=== PATIENT | female | born 1970 | race Caucasian/White ===

== ENCOUNTER 2023-01-12 08:02 | Outpatient (CLI) | payer OTHER, SELFPAY ==
--- NOTE | 2023-01-12 07:59 | W.ANESCHARGE ---
Anesthesia Charges Start Date/Time Anesthesia Start Date: 01/12/23 Anesthesia Start Time: 09:00 Stop Date/Time Anesthesia Stop Date: 01/12/23 Anesthesia Stop Time: 10:05
--- NOTE | 2023-01-12 10:07 | W.ANESCHARGE ---
Anesthesia Charges Start Date/Time Anesthesia Start Date: 01/12/23 Anesthesia Start Time: 09:00 Stop Date/Time Anesthesia Stop Date: 01/12/23 Anesthesia Stop Time: 10:05
== END 2023-01-12 08:03 | disposition home or self-care (01) ==
LOC: OP CLINIC 08:03
PROVIDERS: PCP Internal Medicine; Visit Provider Surgery
DX: Z12.11 Encounter for screening for malignant neoplasm of colon (principal); K62.1 Rectal polyp; Z83.71 Family history of colonic polyps
CPT/HCPCS: 00811; 45385; 88305; J2405; J2704

== ENCOUNTER 2023-02-12 16:09 | Outpatient (CLI) | payer OTHER, SELFPAY | END 2023-02-12 16:10 | disposition home or self-care (01) | PROVIDERS: PCP Internal Medicine; Visit Provider Registered Nurse | DX: Z01.419 Encounter for gynecological examination (general) (routine) without abnormal findings (principal) | CPT/HCPCS: 80061; 82947 ==

== ENCOUNTER 2023-05-25 14:54 | Outpatient (CLI) | payer OTHER, SELFPAY | END 2023-05-25 14:55 | disposition home or self-care (01) | PROVIDERS: PCP Internal Medicine; Visit Provider Family Medicine | DX: Z00.00 Encounter for general adult medical examination without abnormal findings (principal); R53.83 Other fatigue; F32.A Depression, unspecified; F41.9 Anxiety disorder, unspecified | CPT/HCPCS: 80053; 84443 ==

== ENCOUNTER 2023-10-19 14:36 | Outpatient (CLI) | payer OTHER, SELFPAY ==
--- NOTE | 2023-10-19 14:40 | CRLHL7_ITS ---
For Patients: As a result of the Century Cures Act, medical imaging exams and procedure reports are released immediately into your electronic medical record. You may view this report before your referring provider. If you have questions, please contact your health care provider. BILATERAL SCREENING MAMMOGRAM WITH COMPUTER-AIDED DETECTION AND TOMOSYNTHESIS TECHNIQUE: CC and MLO views were obtained. These mammographic images have been obtained using full-field digital technique. These mammographic images were interpreted with the benefit of computer-aided detection. Breast Tomosynthesis was used in this interpretation. COMPARISON FILM: 10/14/22, 10/13/21, 05/05/18. FINDINGS: The breasts are heterogeneously dense, which may obscure small masses IMPRESSION: There is no radiographic evidence for malignancy. ASSESSMENT: BI-RADS Category 1: Negative RECOMMENDATION: Routine screening mammogram in 1 year. A lay language report of this examination will be provided to the patient. Ed Rajan M.D. Diagnostic Radiologist [email or web address] LANNY/Dictated by: Ed Rajan MD @ 10/20/2023 8:46:00 AM (Electronically Signed)
== END 2023-10-19 14:37 | disposition home or self-care (01) ==
LOC: MAMMO 14:37
PROVIDERS: PCP Internal Medicine; Visit Provider Obstetrics & Gynecology
DX: Z12.31 Encounter for screening mammogram for malignant neoplasm of breast (principal); R92.2 Inconclusive mammogram
CPT/HCPCS: 77063; 77067

== ENCOUNTER 2024-03-19 09:55 | Outpatient (CLI) | payer OTHER, SELFPAY | END 2024-03-19 09:56 | disposition home or self-care (01) | LOC: NFLDREF 03-20 14:37 | PROVIDERS: PCP Family Medicine; Referring Provider Family Medicine; Visit Provider Nurse Practitioner Family | DX: N30.00 Acute cystitis without hematuria (principal); N39.0 Urinary tract infection, site not specified | CPT/HCPCS: 87086; 87186 ==

== ENCOUNTER 2024-11-14 11:23 | Outpatient (CLI) | payer OTHER, SELFPAY ==
--- NOTE | 2024-11-14 11:30 | CRLHL7_ITS ---
For Patients: As a result of the Century Cures Act, medical imaging exams and procedure reports are released immediately into your electronic medical record. You may view this report before your referring provider. If you have questions, please contact your health care provider. INDICATION: BILATERAL SCREENING MAMMOGRAM, ASYMPTOMATIC 54 Y/O FEMALE COMPARISON: 10/19/2023, 10/14/2022, 10/13/2021 TECHNIQUE: Digital mammogram in CC and MLO projections including computer-aided detection (CAD) and tomosynthesis. BREAST COMPOSITION: The breasts are heterogeneously dense, which may obscure small masses. FINDINGS: No suspicious findings. ASSESSMENT: BI-RADS 1 Negative RECOMMENDATION: Annual screening mammogram. A lay language report of this examination will be provided to the patient. Dictated by: Ed Rajan MD @ 11/14/2024 12:09:00 (Electronically Signed)
--- OUTSIDE RECORDS SUMMARY | 2024-11-15 00:50 | XMS_ITS | Encounter Summary ---
Author Organization [place] Address Formerly [facility], [facility] [place] [address] Care Team Providers Care Principal Clerk Name Role Phone [facility], [facility] Primary Care Provider Encounter Details Date Type Department Care Team (Late st Contact Info) Description 01/28/2022 Orders Only [facility] [address] [place] [address] Nicole Dickerson MD [facility] [address] [facility] [address] [place] [address] Pre-operative laboratory examination (Primary Dx) Social History Tobacco Use Types Packs/Day Years Used Date Smoking Tobacco: Never Alcohol Use Standard Drinks/Week Comments Yes 0 (1 standard drink = 0.6 oz pur e alcohol) occasionally Comments No Sex and Gender Information Value Date Recorded Sex Assigned at Not on file Legal Sex Female 3:34 PM CDT Gender Identity Not on file Sexual Orientation Not on file documented as of this encounter Plan of Treatment Not on file documented as of this encounter Results * Asymptomatic COVID-19 Virus (Coronavirus) by PCR Nose (02/05/2022 3:09 PM CDT) SARS CoV2 PCR Negative Negative 02/06/2022 10:21 AM CDT [facility] Comment:NEGATIVE: SARS-CoV-2 (COVID-19) RNA not detected, presumed negative. Swab NASAL STRUCTURE / Unknown Non-blood Collection / Unknown 02/05/2022 3:09 PM CDT 02/05/2022 3:09 PM CDT Narrative [facility] - 02/06/2022 10:21 AM CDT Testing was performed using the christopher SARS-CoV-2 assay on the christopher [employer] System. This test should be ordered for the detection of SARS-CoV-2 in individuals who meet SARS-CoV-2 clinical and/or epidemiological criteria. Test performance is unknown in asymptomatic patients. This test is for in vitro diagnostic use under the FDA EUA for laboratories certified under CLIA to perform high and/or moderate complexity testing. This test has not been FDA cleared or approved. A negative result does not rule out the presence of PCR inhibitors in the specimen or target RNA in concentration below the limit of detection for the assay. The possibility of a false negative should be considered if the patient's recent exposure or clinical presentation suggests COVID-19. This test was validated by the [facility] Infectious Diseases Diagnostic Laboratory. This laboratory is certified under the Clinical Laboratory Improvement Amendments of 1988 (CLIA-88) as qualified to perform high and/or moderate complexity laboratory testing. Nicole Dickerson MD LAB - MICRO GENERAL ORDGhazal WEINBERG Final Result [facility] Lab [address] [facility] [place] [address], [facility] [phone] documented in this encounter Visit Diagnoses Diagnosis Pre-operative laboratory examination- Primary Pre-procedural laboratory examination documented in this encounter Care Teams Principal Clerk Relationship Specialty Start Date End Date [facility], [facility] [address] [place] [address] PCP - General 03/21/14 documented as of this encounter
--- OUTSIDE RECORDS SUMMARY | 2024-11-15 00:50 | XMS_ITS | Clinical Summary ---
Author Organization [facility] Address [address] [place] [address]. [place] [address] Care Team Providers Care Hobbing Machine Operator Name Role Phone [facility], [facility] Primary Care Provider Allergies Active Allergy Reactions Criticality Noted Date Comments Amoxicillin Rash Low 03/21/2014 Amoxicillin-Pot Clavulanate Rash 07/24/19 09 Penicillin V Rash High 06/16/2021 Medications estradiol (ESTRACE) 0.1 MG/GM vaginal cream Twice Weekly 06/16/2021 Active ibuprofen (ADVIL/MOTRIN) 600 MG tabletIndicatio ns:Post-operati ve state Take 1 tablet (600 mg) by mouth every 6 hours as needed for moderate pain 30 tablet 02/10/2022 Active polyethylene glycol (MIRALAX) 17 GM/Dose powderIndicatio ns:Post-operati ve state Take 17 g by mouth daily 510 g 02/10/2022 Active Active Problems Problem Noted Date Diagnosed Date Post-operative state 02/09/2022 CARDIOVASCULAR SCREENING; LDL GOAL LESS THAN 160 03/23/2010 Immunizations Immunization Administration Dates Next Due DT (PEDS <7y) 04/28/2005,05/24/1995 Td,adult,historic,unspecified 04/28/2005 Social History Tobacco Use Types Packs/Day Years Used Date Smoking Tobacco: Never Smokeless Tobacco: Never Alcohol Use Standard Drinks/Week Comments Yes 0 (1 standard drink = 0.6 oz pur e alcohol) occasionally Adolescent Education Answer Date Record ed Getting School Help Needed Not on file 02/13 Comments No Sex and Gender Information Value Date Recorded Sex Assigned at Not on file Legal Sex Female 3:34 PM CDT Gender Identity Not on file Sexual Orientation Not on file Last Filed Vital Signs Vital Sign Reading Time Taken Comments Blood Pressure 97/61 02/10/2022 1:53 PM CDT Pulse 69 02/10/2022 1:53 PM CDT Temperature 37.5 C (99.5 F) 02/10/2022 1:53 PM CDT Respiratory Rate 16 02/10/2022 1:53 PM CDT Oxygen Saturation 94% 02/10/2022 1:53 PM CDT Inhaled Oxygen Concentration - - Weight 58.5 kg (128 lb 14.4 oz) 02/09/2022 6:22 AM CDT Height 170.2 cm (5' 7) 02/09/2022 6:22 AM CDT Body Mass Index 20.19 02/09/2022 6:22 AM CDT Plan of Treatment Health Maintenance Due Date Last Done Comments ADVANCE CARE PLANNING 1969 ANNUAL REVIEW OF HM ORDERS 1969 CT COLONOGRAPHY 1969 FIT 1969 FLEX SIG 1969 MAMMO SCREENING 1969 sDNA (Cologuard) 1969 YEARLY PREVENTIVE VISIT 1972 COLONOSCOPY 1979 COLORECTAL CANCER SCREENING 1979 HIV SCREENING 1984 HEPATITIS C SCREENING 1987 HEPATITIS B VACCINE (1 of 3 - 19+ 3-dose series) 1988 LIPID 2009 DTAP/TDAP/TD VACCINE (1 - Tdap) 12/02/2016 12/01/2016, 12/01/2016, 04/28/2005, Additional history exists DIABETES SCREENING 03/21/2017 03/21/2014 PNEUMOCOCCAL VACCINE 50+ YEARS (1 of 1 - PCV) 2019 PAP 10/05/2023 10/04/2020, 10/04/2020 COVID-19 VACCINE (3 - 2023- season) 2024 08/08/2020, 07/10/2020 PHQ-2 (once per calendar year) 2024 INFLUENZA VACCINE (Season Ended) 2025 03/15/2021, 03/16/2019, 03/12/2017, Additional history exists ZOSTER VACCINE Completed 12/01/2021, 03/28/2021 HPV VACCINE Aged Out No longer eligi ble based on patient's age to complete this topic MENINGITIS VACCINE Aged Out No longer eligible based on patient's age to complete this topic Medical Devices Implanted Type Area Inside Outside Sales Representative Device Identifier Shelf Expiration Date Model / Serial / Lot Mesh Sling Prolapse Polyform Synth [id number] - [id number] Implanted:Qty: 1 on 02/09/2022 by Nicole Dickerson MD at [facility] Mesh N/A: Pelvis [employer] 08/21/2024 [id number] / / [id number] Mesh Sling Advantage Mid Uretheral Blue [id number] - [id number] Implanted:Qty: 1 on 02/09/2022 by Nicole Dickerson MD at [facility] Mesh N/A: Pelvis [employer] 12/14/2024 [id number] / / [id number] Procedures Procedure Name Priority Date/Time Associated Diagnosis Comments COMPREHENSIVE METABOLIC PANEL STAT 03/21/2014 2:53 PM CDT from Last 3 Months or Most Recently Relevant to Health Maintenance Results * (ABNORMAL) Comprehensive metabolic panel (03/21/2014 2:53 PM CDT) Sodium 138 133 - 144 mmol/L [facility] Potassium 3.5 3.4 - 5.3 mmol/L [facility] Chloride 107 94 - 109 mmol/L [facility] Carbon Dioxide 25 20 - 32 mmol/L [facility] Anion Gap 6 3 - 14 mmol/L [facility] Glucose 113(H) 70 - 99 mg/dL [facility] Comment: Effective 12/20/2013, the reference range for this assay has changed to reflect new instrumentation/methodology. Urea Nitrogen 13 7 - 30 mg/dL [facility] Comment: Effective 12/20/2013, the reference range for this assay has changed to reflect new instrumentation/methodology. Creatinine 0.71 0.52 - 1.04 mg/dL [facility] GFR Estimate 88 >60 mL/min/1. 7m2 [facility] Comment:Non GFR Calc GFR Estimate If Black >90 GFR Calc >60 mL/min/1. 7m2 [facility] Calcium 8.6 8.5 - 10.1 mg/dL [facility] Comment: Effective 12/20/2013, the reference range for this assay has changed to reflect new instrumentation/methodology. Bilirubin Total 0.3 0.2 - 1.3 mg/dL [facility] Albumin 3.8 3.4 - 5.0 g/dL [facility] Protein Total 6.7(L) 6.8 - 8.8 g/dL [facility] Alkaline Phosphatase 57 40 - 150 U/L [facility] ALT 19 0 - 50 U/L [facility] AST 13 0 - 45 U/L [facility] Blood specimen (specimen) 03/21/2014 2:53 PM CDT 03/21/2014 3:00 PM CDT us Adin Mcdermott MD LAB - BLOOD ORDERABLES Final Res ult [facility] [address] [place] [address], [facility] [phone] from Last 3 Months or Most Recently Relevant to Health Maintenance Advance Directives For more information, please contact: [phone] * Full Code (Latest Code Status on File) Date Activated Date Inactivated Comments 02/09/2022 2:05 PM 02/10/2022 5:36 PM All basic an d advanced life-sustaining interventions are performed as appropriate Question Answer Comments Code status determined by: Discussion with erika nt/ legal decision maker Care Teams Hobbing Machine Operator Relationship Specialty Start Date End Date Clinic, [facility] [address] [place] [address] PCP - General 03/21/14
--- OUTSIDE RECORDS SUMMARY | 2024-11-15 00:50 | XMS_ITS | Clinical Summary ---
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 Gender Identity Not on file Sexual Orientation Not on file Plan of Treatment Health Maintenance Due Date Last Done Comments Tdap 1980 Depression screening for age 12+ 1981 HIV for age 15-65 1984 BMI (ht and wt on same day) for age 18+ 1987 Hepatitis C screening for ag e 18-79 1987 Hepatitis B series for 19+ ( 1 of 3 - 19+ 3-dose series) 1988 Tetanus booster 1989 Colonoscopy through age 75 2014 Lipids for age 45-75 2014 Mammogram for age 45-75 2014 Pneumococcal series for age 50+ (1 of 1 - PCV) 2019 Zoster (shingles) series for age 50+ (1 of 2) 2019 Pap test for age 21-65 10/05/2023 , 10/04/2020, 06/07/2014, Additional history exists COVID-19 vaccine series (2023- season) 2024 Influenza Vaccine (Season Ended) 2025 Procedures Procedure Name Priority Date/Time Associated Diagnosis Comments PATROL MAN THIN PREP PAP SCREEN IMAGED Routine 10/04/2020 1:45 PM CDT from Last 3 Months or Most Recently Relevant to Health Maintenance Results * PATROL MAN THIN PREP PAP SCREEN IMAGED (10/04/2020 1:45 PM CDT) Case Report Gynecologic Cytology Report Case: [id number] Authorizing Provider: Chantal Goldman PA-C Collected: 10/04/2020 1345 Ordering Location: [facility] Received: 10/07/2020 0907 First Screen: Binu Guerin Specimen: PATROL MAN ThinPrep Vial Screening, Cervical/Vaginal 10/15/2020 8:16 AM CDT [facility] INTERPRETATION/ RESULT NEGATIVE FOR INTRAEPITHELIAL LESION OR MALIGNANCY (NIL) (none) 10/15/2020 8:16 AM CDT [facility] at 0816 CDT SPECIMEN ADEQUACY Satisfactory for evaluation No endocervical component seen 10/15/2020 8:16 AM CDT [facility] HPV REQUEST HPV and PAP 10/15/2020 8:16 AM CDT [facility] Date of LMP 08/04/2020 10/15/2020 8:[address] [facility] Additional Information 10/15/2020 8:16 AM CDT [facility] Comment: Interpreted at [facility] - [address] [place] [id number] Automated Review Successful 10/15/2020 8:16 AM CDT [facility] Comment:Specimen processed s uccessfully by automated deck engine operator device, ThinPrep Imaging System, [employer] ANCILLARY TESTING PATROL MAN HPV Ordered, Please see separate report 10/15/2020 8:16 AM CDT [facility] Note The pap test is a screening technique, not a diagnostic procedure. It is used primarily to screen for squamous cancers and precursor lesions. Published studies have shown that it is subject to both false negative and false positive results. The pap test should not be used as the sole means to diagnose or exclude pre-malignant and malignant lesions. 10/15/2020 8:[address] [facility] Other (Cervical/Vagina l) 10/04/2020 1:45 PM CDT 10/07/2020 9:07 AM CDT august Susi RICHARDS PATHOLOGY/CYTOLOGY Final R esult [facility] [address] [place] [address], [place] from Last 3 Months or Most Recently Relevant to Health Maintenance Care Teams Personnel Counselor Relationship Specialty Start Date End Date Lamar Smith MD [address] [place] [address] PCP - General Internal Medicine 04/08/18 Lamar Smith MD [address] [place] [address] Internal Medicine 04/08/18
== END 2024-11-14 11:24 | disposition home or self-care (01) ==
LOC: MAMMO 11:24
PROVIDERS: PCP Family Medicine; Visit Provider Obstetrics & Gynecology
DX: Z12.31 Encounter for screening mammogram for malignant neoplasm of breast (principal); R92.333 Mammographic heterogeneous density, bilateral breasts
CPT/HCPCS: 77063; 77067